=== PATIENT | female | born 1990 ===

== ENCOUNTER 2019-01-24 14:14 | Outpatient (CLI) | payer OTHER ==
[~2019-01-24] VITALS: Ht 154.9 cm; Wt 54.9 kg
== END 2019-01-24 14:30 | disposition home or self-care (01) ==
LOC: OFIC 805 14:14
DX: C53.9 Malignant neoplasm of cervix uteri, unspecified (principal); H61.23 Impacted cerumen, bilateral; R22.0 Localized swelling, mass and lump, head